=== PATIENT | female | born 1990 | race Two or more races ===

== ENCOUNTER 2025-04-05 11:59 | Emergency (ER) | payer SELFPAY ==
[~2025-04-05] VITALS: Ht 162.6 cm; Wt 59.0 kg
[2025-04-05 12:02] VITALS: O2SAT 99
[2025-04-05] MEDS: ACETAMINOPHEN WITH CODEINE 300/30MG TABLET PO ONE (13:14)
[2025-04-05] MEDS: LIDOCAINE HCL 1% 20ML VIAL INFIL ONE (13:14)
[2025-04-05] MEDS ORDERED: T3 PO (16:31)
[2025-04-05] MEDS ORDERED: AMOX-494 MT (16:31)
[2025-04-05] MEDS ORDERED: IBUP-1455 MT (16:31)
[2025-04-05 16:48] VITALS: BP 122/87; PULSE 81; RESP 16; TEMP 37.1; O2SAT 100
== END 2025-04-05 16:49 | disposition home or self-care (01) ==
LOC: ER 11:59
DX: S01.511A Laceration without foreign body of lip, initial encounter (principal); Z79.899 Other long term (current) drug therapy; X58.XXXA Exposure to other specified factors, initial encounter; Y93.62 Activity, american flag or touch football; Y92.89 Other specified places as the place of occurrence of the external cause; Y99.8 Other external cause status
CPT/HCPCS: 99284; 70486; 12013; J2003